=== PATIENT | female | born 1995 | race Caucasian/White ===

== ENCOUNTER 2016-12-22 19:11 | Emergency (ER) | payer SELFPAY ==
[~2016-12-22] VITALS: Ht 160 cm; Wt 62.0 kg
[2016-12-22 19:12] VITALS: BP 133/84; PULSE 97; RESP 15; TEMP 97.9; O2SAT 99
== END 2016-12-22 22:14 | disposition left against medical advice (07) ==
LOC: NETRI 19:11
DX: R68.89 Other general symptoms and signs (principal)
CPT/HCPCS: 99281